=== PATIENT | male | born 1945 | race Caucasian/White ===

== ENCOUNTER 2022-03-12 06:10 | Day surgery (SDC) | payer OTHER ==
[2022-03-08 11:34] LABS: BASOPHILS % (AUTO) 0.7 % (0.0-5.0); HEMATOCRIT 45.9 % (42-54); LYMPHOCYTES % (AUTO) 19.5 % (21.0-51.0); MEAN CORPUSCULAR HEMOGLOBIN 29.7 pg (27.0-33.0); MEAN CORPUSCULAR HGB CONC 32.7 g/dL (32.0-36.0); MEAN CORPUSCULAR VOLUME 90.9 fL (79-99); MONOCYTES % (AUTO) 11.5 % (3.0-13.0); NEUTROPHILS % (AUTO) 67.9 % (40.0-77.0); PLATELET COUNT (AUTO) 243 K/uL (130-400); RED BLOOD CELL COUNT(AUTO) 5.05 MIL/uL (4.50-6.20); WHITE BLOOD COUNT (AUTO) 4.6 K/uL (4.8-10.8)
[2022-03-08 11:49] LABS: POTASSIUM 4.2 mmol/L (3.5-5.1)
[2022-03-08 12:17] LABS: INR 1.05 (0.85-1.15); PROTHROMBIN TIME 11.4 SEC (9.6-11.6)
[2022-03-08 12:19] LABS: PARTIAL THROMBOPLASTIN TIME 29.8 SEC (26.3-35.5)
[2022-03-09 08:39] VITALS: BP 132/62
[~2022-03-12] VITALS: Ht 172.7 cm; Wt 92.3 kg
[~2022-03-12 06:10] MED LIST: ALBUTEROL IH; APIX5TAB PO; ASCO500C18 PO; BYDUREON SQ; CANA300T PO; DULO60CA64 PO; GLIP5TAB11 PO; LIDOCAINE TP; LOSA100T58 PO; METF-446 PO; METO-391 PO; MORP-108 PO; MVIT PO; NICOTINE LOZENGE PO; PREG150C46 PO; PROP225T3 PO; ROSU10TA28 PO; SENN-107 PO; TESTOSTERONE TP; VIT1CAPS46 PO
[2022-03-12] MEDS ORDERED: 0.9%NACL 1000ML 1,000 ML IV ONE (07:25)
[2022-03-12 07:33] VITALS: BP 129/58
[2022-03-12] MEDS ORDERED: BUPIVACAINE/PF 0.25% 30ML VIAL IJ ONE (08:17)
[2022-03-12] MEDS ORDERED: LIDOCAINE HCL 1% 20 ML VIAL ONE (08:17)
[2022-03-12] MEDS ORDERED: BACITRACIN 1 EACH PACKET TP ONE (08:35)
[2022-03-12 09:05] VITALS: BP 126/63
[2022-03-12 09:20] VITALS: BP 135/66
== END 2022-03-12 10:06 | disposition home or self-care (01) ==
LOC: DAH 06:10
PROVIDERS: ATTEND Internal Medicine Cardiovascular Disease
DX: I47.1 Supraventricular tachycardia (principal); R55 Syncope and collapse; I48.92 Unspecified atrial flutter; E11.9 Type 2 diabetes mellitus without complications; I10 Essential (primary) hypertension; E78.5 Hyperlipidemia, unspecified; M19.90 Unspecified osteoarthritis, unspecified site; Z79.01 Long term (current) use of anticoagulants; Z79.899 Other long term (current) drug therapy; Z79.82 Long term (current) use of aspirin; Z98.890 Other specified postprocedural states; Z82.49 Family history of ischemic heart disease and other diseases of the circulatory system; Z82.3 Family history of stroke
CPT/HCPCS: 80048; 85025; 85610; 85730; 36415; 93005; 33285; A4649; C1764; J7030; J3490; A4215; A4222; A4221; A4663; A4216; A4606; A4223 ×3

== ENCOUNTER 2022-04-06 06:25 | Day surgery (SDC) | payer OTHER ==
[2022-04-05 10:41] VITALS: BP 104/52
[2022-04-05 10:59] LABS: BASOPHILS % (AUTO) 0.9 % (0.0-5.0); EOSINOPHILS % (AUTO) 0.9 % (0.0-8.0); HEMATOCRIT 49.3 % (42-54); LYMPHOCYTES % (AUTO) 20.4 % (21.0-51.0); MEAN CORPUSCULAR HEMOGLOBIN 29.9 pg (27.0-33.0); MEAN CORPUSCULAR HGB CONC 32.9 g/dL (32.0-36.0); NEUTROPHILS % (AUTO) 67.3 % (40.0-77.0); PLATELET COUNT (AUTO) 195 K/uL (130-400); RED BLOOD CELL COUNT(AUTO) 5.42 MIL/uL (4.50-6.20); RED CELL DISTRIBUTION WIDTH 13.1 % (11.0-15.5); WHITE BLOOD COUNT (AUTO) 4.2 K/uL (4.8-10.8)
[2022-04-05 11:09] LABS: INR 1.09 (0.85-1.15); PROTHROMBIN TIME 11.8 SEC (9.6-11.6)
[2022-04-05 11:10] LABS: PARTIAL THROMBOPLASTIN TIME 29.5 SEC (26.3-35.5)
[2022-04-05 11:12] LABS: CREATININE 1.1 mg/dL (0.5-1.5); POTASSIUM 4.5 mmol/L (3.5-5.1)
[~2022-04-06] VITALS: Ht 175.3 cm; Wt 91.1 kg
[2022-04-06] VITALS (11 sets, daily range): BP systolic 76–120; BP diastolic 39–64
[~2022-04-06 06:25] MED LIST changes: +ALBU18HF7 IH; -ALBUTEROL IH; -ASCO500C18 PO; -BYDUREON SQ; -LIDOCAINE TP; -LOSA100T58 PO; +LOSA50TA64 PO; -METO-391 PO; -MVIT PO; +Metoprolol Succinate PO; -NICOTINE LOZENGE PO; -PROP225T3 PO; +PROP325C5 PO; -SENN-107 PO; +TEST2.5G16 TD; -TESTOSTERONE TP; -VIT1CAPS46 PO
[2022-04-06] MEDS ORDERED: LIDOCAINE PF 100MG/5ML (2%) SYRINGE 5ML ONE (07:38)
[2022-04-06] MEDS ORDERED: PROPOFOL 10 MG/ML 20ML VIAL IV ONE (07:39)
[2022-04-06] MEDS ORDERED: 0.9%NACL 1000ML 1,000 ML IV SCH (08:00)
== END 2022-04-06 10:20 | disposition home or self-care (01) ==
LOC: DAH 06:25
PROVIDERS: ATTEND Internal Medicine Cardiovascular Disease
DX: I48.19 Other persistent atrial fibrillation (principal); J44.9 Chronic obstructive pulmonary disease, unspecified; I10 Essential (primary) hypertension; E78.5 Hyperlipidemia, unspecified; K21.9 Gastro-esophageal reflux disease without esophagitis; M19.90 Unspecified osteoarthritis, unspecified site; E11.9 Type 2 diabetes mellitus without complications; Z79.82 Long term (current) use of aspirin; Z87.891 Personal history of nicotine dependence; Z86.73 Personal history of transient ischemic attack (TIA), and cerebral infarction without residual deficits; Z79.01 Long term (current) use of anticoagulants; Z79.899 Other long term (current) drug therapy; Z98.890 Other specified postprocedural states; Z90.89 Acquired absence of other organs
CPT/HCPCS: 71045; 87426; 80048; 85025; 85610; 85730; 36415; 92960; 82948; 93005 ×2; J7030; J2001; J2704; A4215; A4222; A4221; A4663; A4216; A4606; A4223 ×3; 99156; 99157

== ENCOUNTER → 2023-12-18 | Outpatient (CLI) | payer OTHER ==
[~2023-12-18] MED LIST changes: -GLIP5TAB11 PO; +GLIP5TAB15 PO; -PREG150C46 PO; +PREG150C47 PO; +PROP325C17 PO; -PROP325C5 PO; -ROSU10TA28 PO; +ROSU10TA72 PO
== END | disposition home or self-care (01) ==
LOC: SHCH 13:49
PROVIDERS: ATTEND Internal Medicine Cardiovascular Disease
DX: I48.0 Paroxysmal atrial fibrillation (principal); I48.4 Atypical atrial flutter; R09.89 Other specified symptoms and signs involving the circulatory and respiratory systems
CPT/HCPCS: 93306; 93880

== ENCOUNTER → 2024-02-17 | Outpatient (CLI) | payer OTHER ==
[2024-02-17 11:48] LABS: CREATININE 0.9 mg/dL (0.5-1.3); POTASSIUM 4.4 mmol/L (3.5-5.1)
== END | disposition home or self-care (01) ==
LOC: LAB 11:12
PROVIDERS: ATTEND Internal Medicine Cardiovascular Disease
DX: I48.0 Paroxysmal atrial fibrillation (principal)
CPT/HCPCS: 36415; 80048

== ENCOUNTER → 2024-02-19 | Outpatient (CLI) | payer OTHER ==
[~2024-02-19] MED LIST changes: +IOHEXOL-350 75 ML VIAL IV ONE
== END | disposition home or self-care (01) ==
LOC: RAH 10:20
PROVIDERS: ATTEND Internal Medicine Cardiovascular Disease
DX: I70.0 Atherosclerosis of aorta (principal); I65.23 Occlusion and stenosis of bilateral carotid arteries
CPT/HCPCS: 70498; Q9967

== ENCOUNTER → 2024-02-22 | Outpatient (CLI) | payer OTHER ==
[~2024-02-22] MED LIST changes: -IOHEXOL-350 75 ML VIAL IV ONE
== END | disposition home or self-care (01) ==
LOC: SHCH 15:27
PROVIDERS: ATTEND Internal Medicine Cardiovascular Disease
DX: I73.9 Peripheral vascular disease, unspecified (principal)
CPT/HCPCS: 93925

== ENCOUNTER → 2024-02-26 | Outpatient (CLI) | payer OTHER | END | disposition home or self-care (01) | LOC: RAH 14:48 | PROVIDERS: ATTEND Internal Medicine Cardiovascular Disease | DX: Z13.6 Encounter for screening for cardiovascular disorders (principal) | CPT/HCPCS: 75571 ==

== ENCOUNTER → 2024-03-04 | Outpatient (CLI) | payer OTHER ==
[2024-03-04 12:30] LABS: CREATININE 0.9 mg/dL (0.5-1.3); POTASSIUM 4.3 mmol/L (3.5-5.1)
== END | disposition home or self-care (01) ==
LOC: LAB 10:58
PROVIDERS: ATTEND Internal Medicine Cardiovascular Disease
DX: I48.4 Atypical atrial flutter (principal)
CPT/HCPCS: 36415; 80048

== ENCOUNTER → 2024-03-10 | Outpatient (CLI) | payer OTHER ==
[~2024-03-10] MED LIST changes: +IOHEXOL-350 75 ML VIAL IV ONE
== END | disposition home or self-care (01) ==
LOC: RAH 10:46 → EDSTATUS 11:00
PROVIDERS: ATTEND Internal Medicine Cardiovascular Disease
DX: I70.203 Unspecified atherosclerosis of native arteries of extremities, bilateral legs (principal); I70.0 Atherosclerosis of aorta; Z96.643 Presence of artificial hip joint, bilateral
CPT/HCPCS: 75635; Q9967

== ENCOUNTER → 2024-05-05 | Outpatient (CLI) | payer OTHER ==
[~2024-05-05] MED LIST changes: -IOHEXOL-350 75 ML VIAL IV ONE
[2024-05-05] MEDS: REGADENOSON 0.4 MG/5 ML PF SYG IVP ONE (10:52)
== END | disposition home or self-care (01) ==
LOC: SHCH 08:02
PROVIDERS: ATTEND Internal Medicine Cardiovascular Disease
DX: I25.10 Atherosclerotic heart disease of native coronary artery without angina pectoris (principal); I48.0 Paroxysmal atrial fibrillation
CPT/HCPCS: 78452; 93017; J2785; A9500 ×2

== ENCOUNTER 2025-03-24 14:39 | Observation (INO) | payer OTHER ==
[~2025-03-24] VITALS: Ht 175.3 cm; Wt 85.6 kg
[~2025-03-24 14:39] MED LIST changes: -CANA300T PO; +FARXIGA PO; -Metoprolol Succinate PO; +NICO-578 PO; +[UNRECOGNIZED DRUG - OTHER] SQ
[2025-03-24 15:15] LABS: IMMATURE GRANULOCYTE ABSOLUTE 0.01 K/uL (0-1); NUCLEATED RED BLOOD CELLS 0.0 % (0.0-0.19); PLATELET COUNT (AUTO) 186 K/uL (130-400); RED BLOOD CELL COUNT(AUTO) 5.89 MIL/uL (4.50-6.20); RED CELL DISTRIBUTION WIDTH 13.4 % (11.0-15.5); WHITE BLOOD COUNT (AUTO) 7.3 K/uL (4.8-10.8)
[2025-03-24 15:21] LABS: CREATININE 1.0 mg/dL (0.5-1.3); GLOMERULAR FILTR. RATE CALC 77.0 mL/min (>90); GLUCOSE,RANDOM 149.0 mg/dL (70-105); SODIUM SERUM 137.0 mmol/L (136-145); UREA NITROGEN, BLOOD 17.0 mg/dL (7-18)
[2025-03-24 15:31] LABS: CREATINE KINASE, TOTAL 68.0 U/L (21-232)
--- NOTE | 2025-03-24 15:36 | ERN ---
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 PATIENT DOES HAS A HISTORY OF AFIB BUT CONCERNS WERE THAT THE BLOOD PRESSURE OF THE PATIENT WAS IN THE 80S SYSTOLIC. PATIENT WAS ALSO PRESENTED WITH NEAR-SYNCOPE EPISODE. Allergies: Coded Allergies: atorvastatin (Unverified Allergy, Unknown, 03/09/22) hydrocodone (Unverified Allergy, Unknown, 04/06/22) Home Meds Reported Medications [byduran] No Conflict Check, 2 MG SQ QWEEK 06/05/24 [Farxiga] No Conflict Check, 10 MG PO AM 06/03/24 Nicotine Polacrilex (Nicotine Lozenge) 4 Mg Lozenge, 1 EACH PO AD for 10 Days, #25 EACH 0 Refills 06/03/24 Albuterol Sulfate (Ventolin Hfa) 18 Gm Hfa.aer.ad, 1 PUFF IH Q4HPRN PRN for SHORTNESS OF BREATH/WHEEZING, INHALER 04/05/22 Testosterone (Testosterone) 2.5 Gm Gel.packet, 2 PACK TD DAILY 04/05/22 Losartan Potassium (Losartan Potassium) 50 Mg Tablet, 100 MG PO HS, TAB 04/05/22 Propafenone HCl (Propafenone HCl) 325 Mg Cap.er.12h, 325 MG PO BID, CAPSULE.DR 04/05/22 Morphine Sulfate (Morphine Sulfate 15 mg Tab.sa) 15 Mg Tablet.er, 15 MG PO Q4HPRN PRN for PAIN, TAB 03/09/22 Glipizide (Glipizide) 5 Mg Tablet, 5 MG PO HS, TAB 03/09/22 Rosuvastatin Calcium (Rosuvastatin Calcium) 10 Mg Tablet, 10 MG PO HS, TAB 03/09/22 Duloxetine HCl (Duloxetine HCl) 60 Mg Capsule.dr, 60 MG PO HS, CAP 03/09/22 Metformin HCl (Metformin HCl) 1,000 Mg Tablet, 1000 MG PO BID, TAB 03/09/22 Pregabalin (Pregabalin) 150 Mg Capsule, 150 MG PO BID, CAP 03/09/22 Apixaban (Eliquis) 5 Mg Tablet, 5 MG PO BID, TAB 03/09/22 Past Medical History Past Medical History: A-Fib, Diabetes-Type II, High Cholesterol, Hypertension Past Surgical History: Tonsillectomy, Other Surgical History Other: BILATERAL HIP, BILATERAL SHOULDERS REPLACEMENT ROS Dictation CONSTITUTIONAL: NO CHILLS, NO FEVER, NO WEAKNESS, DIAPHORESIS, MALAISE. HEAD/FACE: NO SIGNS OF TRAUMA. EENT: NO EYE PAIN, NO BLURRED VISION, NO TEARING, NO DOUBLE VISION, NO EAR PAIN, NO EAR DISCHARGE, NO NOSE PAIN, NO NASAL CONGESTION, NO THROAT PAIN, NO THROAT SWELLING, NO MOUTH PAIN. RESPIRATORY: NO COUGH, NO ORTHOPNEA, NO SOB, NO STRIDOR, NO WHEEZING. CARDIOVASCULAR: NO CHEST PAIN, NO EDEMA, PALPITATIONS, NEAR SYNCOPE. GASTROINTESTINAL/ABDOMINAL: NO ABDOMINAL PAIN, NO CONSTIPATION, NO DIARRHEA, NO NAUSEA, NO VOMITING. GENITOURINARY: NO ABNORMAL DISCHARGE, NO DYSURIA, NO FREQUENT URINATION, NO HEMATURIA. NO COMPLAINTS OF PAIN IN THE GENITALS. MUSCULOSKELETAL: NO BACK PAIN, NO GOUT, NO JOINT PAIN, NO JOINT SWELLING, NO MUSCLE PAIN, NO MUSCLE STIFFNESS, NO NECK PAIN. INTEGUMENTARY: NO CHANGE IN COLOR, NO CHANGE IN HAIR/NAILS, NO DRYNESS, NO LESION, NO LUMPS, NO RASH. NEUROLOGICAL/PSYCH: NO ANXIETY, NOT DEPRESSED, NO EMOTIONAL PROBLEM, NO HEADACHE, NO NUMBNESS, NO PRE-EXISTING DEFICIT, NO HISTORY OF SEIZURES, NO TREMORS, NO WEAKNESS. HEMATOLOGIC/LYMPHATIC: NOT ANEMIC, NO HISTORY OF BLOOD CLOTS, NO APPARENT BLEEDING, NO BRUISING, GLANDS NOT SWOLLEN. ALL SYSTEMS NEGATIVE, EXCEPT NOTED. Physical Exam Physical Exam Dictation VITAL SIGNS: REVIEWED. GENERAL APPEARANCE: ALERT, ORIENTED X3, NO ACUTE DISTRESS, OBESE. HEAD AND FACE: NON-TRAUMATIC. EYES: PERRL, PINK CONJUNCTIVAS, EYELID NO TRAUMA, ANTERIOR CHAMBER CLEAR. EARS: PINNAS INTACT AND NO SIGNS OF TRAUMA OR ERYTHEMA. EAR CANALS CLEAR AND NO DISCHARGE. TMS NO ERYTHEMA. NOSE: NO DISCHARGE, NO BLEEDING. OROPHARYNX: MOUTH NORMAL, TEETH NO CARIES, TONGUE PINK. PHARYNX CLEAR, NO ERYTHEMA. TONSILS NO EXUDATES, NO ABSCESSES NOTED. MUCOUS MEMBRANE MOIST. NECK: SUPPLE, NON-TENDER, NO THYROMEGALY, NO MASSES, NO JVD, NO BRUITS. BREAST: DEFERRED. CHEST: NO TENDERNESS, NO CREPITUS, NO PARADOXICAL MOVEMENT, NO RETRACTIONS. LUNGS: CLEAR, WELL-VENTILATED, SYMMETRIC, NO RALES, NO WHEEZING, NO RHONCHI, NO STRIDOR, GOOD BREATH SOUNDS BILATERALLY. HEART: REGULAR RATE, REGULAR RHYTHM, NO MURMUR, NO GALLOPS. VASCULAR: NO PERIPHERAL EDEMA. ABDOMEN: SOFT, POSITIVE BOWEL SOUNDS, NONDISTENDED, NO GUARDING, NONTENDER, NO REBOUND, NO MASSES NO HEPATOMEGALY, NO SPLENOMEGALY, NO RODAS'S SIGN, NO HERNIAS. RECTAL: DEFERRED. GENITAL: DEFERRED. NEUROLOGICAL: NORMAL SPEECH, GROSS MOTOR FUNCTION INTACT, GROSS SENSORY FUNCTION INTACT. MUSCULOSKELETAL: NECK NONTENDER, FULL RANGE OF MOTION, BACK NONTENDER, FULL RANGE OF MOTION. EXTREMITIES: NONTENDER, FULL RANGE OF MOTION. SKIN: COLOR PINK, DRY, NO TURGOR, NO RASH, NO LACERATIONS, NO ABRASIONS, NO CONTUSIONS. LYMPHATICS: DEFERRED. Results Laboratory and Microbiology Lab and Micro Result Laboratory Tests Test 03/24/25 15:05 White Blood Count 7.3 K/uL (4.8-10.8) Red Blood Count 5.89 MIL/uL (4.50-6.20) Hemoglobin 17.7 g/dL (14.0-18.0) Hematocrit 52.9 % (42-54) Mean Corpuscular Volume 89.8 fL (79-99) Mean Corpuscular Hemoglobin 30.1 pg (27.0-33.0) Mean Corpuscular Hemoglobin Concent 33.5 g/dL (32.0-36.0) Red Cell Distribution Width 13.4 % (11.0-15.5) Platelet Count 186 K/uL (130-400) Mean Platelet Volume 10.0 fL (7.5-10.5) Immature Granulocyte % (Auto) 0.1 % (0-1) Neutrophils (%) (Auto) 65.6 % (40.0-77.0) Lymphocytes (%) (Auto) 18.1 % (21.0-51.0) L Monocytes (%) (Auto) 9.4 % (3.0-13.0) Eosinophils (%) (Auto) 6.1 % (0.0-8.0) Basophils (%) (Auto) 0.7 % (0.0-5.0) Neutrophils # (Auto) 4.8 K/uL (1.8-7.7) Lymphocytes # (Auto) 1.3 K/uL (1.0-4.8) Monocytes # (Auto) 0.7 K/uL (0.1-1.0) Eosinophils # (Auto) 0.45 K/uL (0.00-0.70) Basophils # (Auto) 0.05 K/uL (0.00-0.20) Absolute Immature Granulocyte (auto 0.01 K/uL (0-1) Nucleated Red Blood Cells 0.0 % (0.0-0.19) Sodium Level 137 mmol/L (136-145) Potassium Level 4.3 mmol/L (3.5-5.1) Chloride Level 100 mmol/L (101-111) L Carbon Dioxide Level 33 mmol/L (21-32) H Blood Urea Nitrogen 17 mg/dL (7-18) Creatinine 1.0 mg/dL (0.5-1.3) Glomerular Filtration Rate Calc 77 mL/min (>90) Random Glucose 149 mg/dL (70-105) H Total Calcium 8.9 mg/dL (8.5-10.1) Magnesium Level 2.00 mg/dL (1.80-2.40) Total Creatine Kinase 68 U/L (21-232) Troponin I High Sensitivity 74 ng/L (4-75) Labs Reviewed?: Yes EKG/XRAY/US/CT/MRI EKG Comment 03/24/2025 TIME 2:44 P.M. VENTRICULAR RATE 139 SINUS ATOPIC ATRIAL TACHYCARDIA CA [address] WAVE ELEVATION OR DEPRESSION REPEAT EKG 03/24/2025 TIME 3:45 P.M. VENTRICULAR RATE [address] WAVE ELEVATION OR DEPRESSION MDM MDM: DIFFERENTIAL DIAGNOSIS: HYPOTENSIVE EPISODE, ATRIAL FIBRILLATION, NEAR-SYNCOPE, RATIONALE: TESTS CONSIDERED AND ORDERED SECONDARY TO SHARED DECISION MAKING INCLUDE: LABS, ECG AND RADIOLOGY PREVIOUS OUTSIDE RECORDS REVIEWED: OLD ER VISITS. RISK OF COMPLICATION AND/OR MORBIDITY OR MORTALITY OF PATIENT MANAGEMENT: NONE MEDICATIONS-PER MEDICATION RECONCILIATION NEED FOR HOSPITALIZATION: PATIENT DOES MEET CRITERIA FOR HOSPITALIZATION. NEED FOR EMERGENCY MAJOR/MINOR SURGERY: NO THERE ARE NO SOCIAL CONCERNS WITH THIS PATIENT. PRESCRIPTION DRUG MANAGEMENT PRESCRIPTIONS WILL INCLUDE SYMPTOMATIC CARE PATIENT'S PRIOR EXTERNAL MEDICAL RECORDS FROM OTHER ER VISITS WERE REVIEWED BY ME INDICATED. PRIOR TESTING AND RESULTS FROM PREVIOUS VISITS WERE REVIEWED. PRIOR TESTS WERE TAKEN INTO ACCOUNT WITH MEDICAL DECISION MAKING AND RESOURCE UTILIZATION, INDEPENDENT HISTORIAN/HISTORIANS WERE USED TO OBTAIN COMPLETE MEDICAL HISTORY. I INDEPENDENTLY INTERPRETED THE TEST THAT WERE PERFORMED, RESULTS WERE REVIEWED BY ME AND CONSIDERED FINDINGS ON RADIOLOGY IF ORDERED. MEDICAL MANAGEMENT AND EXAMINATION INTERPRETATION DISCUSSIONS WERE HAD BY ME WITH OTHER QUALIFIED HEALTHCARE PROFESSIONALS INDICATED FOR THE PATIENT'S CARE. PATIENT WILL BE ADMITTED UNDER THE CARE OF [facility] FOR ONGOING MANAGEMENT ED Course Orders Procedure Category Date Status Time Cbc With Differential LAB 03/24/25 Complete 14:47 Chest 1vw RAD 03/24/25 Taken 14:47 12 Lead Ekg Tracing- EKG 03/24/25 Logged Technical 14:47 Magnesium LAB 03/24/25 Complete 14:47 Creatine Kinase, Total LAB 03/24/25 Complete 14:47 Troponin I High LAB 03/24/25 Complete Sensitivity 14:47 Urinalysis Profile LAB 03/24/25 Logged 14:47 Basic Metabolic Panel LAB 03/24/25 Complete 14:47 Metoprolol Tartrate PHA 03/24/25 Complete (Lopressor) 15:30 12 Lead Ekg Tracing- EKG 03/24/25 Logged Technical 15:45 Current Medications Medications (Trade) Dose Ordered Sig/Nate Route PRN Reason Start Time Stop Time Status Last Admin Dose Admin Metoprolol Tartrate (loprESSOR) 5 mg ONCE ONCE IV 03/24/25 15:30 03/24/25 15:31 DC 03/24/25 15:13 Vital Signs Date Time Temp Pulse Resp B/P (MAP) Pulse Ox O2 Delivery O2 Flow Rate FiO2 03/24/25 15:31 98.1 105 19 120/71 99 Room Air* 0 21 03/24/25 15:13 142 126/79 03/24/25 14:58 138 18 135/83 99 Room Air* 0 03/24/25 14:40 97.5 141 16 114/79 98 Nasal Cannula 3.0 DX & DISP Disposition: Inpatient Decision to Admit Time: 15:59 Departure Impression: Primary Impression: Near syncope Additional Impressions: Atrial flutter, Hypotensive episode Condition: Stable Referrals: MAX HUGO MD (PCP) DAVE KIRKPATRICK MD Mar 24, 2025 15:36
--- NOTE | 2025-03-24 16:04 | HMCIMG ---
EXAM: CR Chest, 2 View. CLINICAL HISTORY: CP COMPARISON: 06/03/2024. FINDINGS: LUNGS: The lungs show no infiltrate or other acute finding. PLEURAL SPACES: No pleural effusion or pneumothorax. MEDIASTINUM: The cardiomediastinal silhouette is within normal limits. BONES: No aggressive appearing osseous lesion seen. Bilateral shoulder arthroplasty. IMPRESSION: No acute cardiopulmonary pathology is evident. /[place]
[2025-03-24 16:49] LABS: CREATINE KINASE, TOTAL 63.0 U/L (21-232)
--- NOTE | 2025-03-24 17:16 | HMCIMG ---
EXAM: US Duplex Bilateral Carotid and Vertebral Arteries. CLINICAL HISTORY: syncope TECHNIQUE: Real-time ultrasound scan of the bilateral carotid and vertebral arteries, 2-D saini scale, with color Doppler flow and spectral waveform analysis. COMPARISON: None provided. FINDINGS: RIGHT COMMON CAROTID ARTERY: No occlusion or significant stenosis. RIGHT INTERNAL CAROTID ARTERY: No occlusion or significant stenosis. RIGHT EXTERNAL CAROTID ARTERY: No occlusion or significant stenosis. RIGHT VERTEBRAL ARTERY: Antegrade flow. RIGHT ICA/CCA RATIO: Within normal limits. LEFT COMMON CAROTID ARTERY: Elevated velocities suggesting mild origin stenosis. LEFT INTERNAL CAROTID ARTERY: No occlusion or significant stenosis. LEFT EXTERNAL CAROTID ARTERY: No occlusion or significant stenosis. LEFT VERTEBRAL ARTERY: Antegrade flow. LEFT ICA/CCA RATIO: Within normal limits. SOFT TISSUES: No incidental abnormalities. IMPRESSION: Cardiac arrhythmia. Moderate hemodynamically insignificant atherosclerotic plaque No hemodynamically significant stenosis by NASCET criteria. /[place]
[2025-03-24 17:25] LABS: ABG BASE EXCESS -0.1 mmol/L (-2.0-3.0); ABG HCO3 25.5 mmol/L (21.0-28.0); ABG OXYGEN SATURATION 97.1 % (94.0-98.0); ABG PCO2 45 mmHg (35-48); ABG PH 7.373 (7.350-7.450); CARBON MONOXIDE 0.2 % (0.5-1.5); DEVICE COMMENT LBJOCELYN; PO2, ARTERIAL BG 97.4 mmHg (83.0-108.0); TEMPERATURE, CELSIUS BG 37.0 CELSIUS (35.5-37.0); VENT MODE, BG NC (ROOM AIR)
--- NOTE | 2025-03-24 17:42 | NUR ---
FLYNN MARAVILLA MADE AWARE OF CRITICAL ABG LACTIC AND HGB LEVEL. NO NEW ORDERS GIVEN AT THIS TIME./NAUN
[2025-03-24 17:47] LABS: APPEARANCE,URINE CLEAR (CLEAR); GLUCOSE, URINE (UA) >=1000 mg/dL (NEGATIVE); LEUKOCYTE ESTERASE ,URINE NEGATIVE Leu/uL (NEGATIVE); NITRATE,URINE NEGATIVE (NEGATIVE); OCCULT BLOOD,URINE NEGATIVE (NEGATIVE)
[2025-03-24 17:48] LABS: ADD UA MICROSCOPIC YES
[2025-03-24 17:51] LABS: SQUAMOUS EPITHELIAL CELL,UR RARE /HPF (0-2)
--- NOTE | 2025-03-24 20:13 | NUR ---
PENDING HOME MEDICATIONS LIST
[2025-03-24] MEDS: FAMOTIDINE 20MG TAB PO SCH (20:32)
--- NOTE | 2025-03-24 20:35 | NUR ---
FRANCY BIN PACKER AT BEDSIDE AT THIS TIME
[2025-03-24] MEDS ORDERED: NITROGLYCERIN 0.4 MG SL TAB SL PRN ×2 (21:30→22:00)
--- NOTE | 2025-03-24 21:52 | HP ---
[facility] HISTORY & PHYSICAL Date Patient Seen: Mar 24, 2025 Time of Visit: 21:43 Supervising Physician: DR. ERNESTO MOSHER Primary Care Physician: OANH ALVA Outpatient Specialists: [ ] Inpatient Consults: CARDIOLOGY PROBLEM LIST: 1. AFIB WITH RVR 2. UNSTABLE ANGINA 3. DIABETES TYPE 2 UNCONTROLLED 4. NEAR-SYNCOPE CHIEF COMPLAINT: GENERALIZED BODY WEAKNESS, CHEST PAIN, NEAR-SYNCOPE. 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 Patient reports that earlier today, he was seen by his primary care physician Dr. Dre Alfaro, and was found to be hypotensive and tachycardic. Patient was referred to Dr. FINE patient's mining technician. Upon 12 lead EKGs, patient was found to be in AFib with RVR and was referred to the emergency department for further evaluation and treatment. Patient also reports chest pain. Patient denies fever, chills, nausea, vomiting, diarrhea, cough, dizziness, or any other symptoms. Ultrasound Doppler of the bilateral chloride is shows no significant atherosclerotic plaque. In the emergency department, patient received metoprolol 5 mg IV,. For the time of the assessment, patient is still on AFib with RVR and was started on Cardizem drip with cardiology consult. Patient will be admitted to PCCU for close monitoring. PAST MEDICAL HX: see above PAST SURGICAL HX: noncontributory SOCIAL HISTORY: No tobacco, ETOH, or illicit drug use Coded Allergies: atorvastatin (Unverified Allergy, Unknown, 03/09/22) hydrocodone (Unverified Allergy, Unknown, 04/06/22) REVIEW OF SYSTEMS: 12 point ROS reviewed with patient. Pertinent positives mentioned above. Otherwise negative. PHYSICAL EXAM: GENERAL: alert, weak, awake oriented x 3 HEENT: EOMI, Sclera non icteric, moist mucosa NECK: Supple, no JVD, trachea midline LUNGS: Clear breath sounds bilaterally. No wheezes HEART: Regular rate and rhythm. Normal S1 and S2, without murmurs ABD: Abdomen soft, nontender. Bowel sounds present EXT: No clubbing cyanosis or edema NEURO: Alert and oriented to person, follows commands Vital Signs (last 8hr) Date Time Temp Pulse Resp B/P (MAP) Pulse Ox O2 Delivery O2 Flow Rate FiO2 03/24/25 21:39 98.2 123 20 128/81 97 Nasal Cannula* 2 03/24/25 21:39 123 128/81 03/24/25 20:44 139 16 136/82 97 Nasal Cannula* 2 03/24/25 19:59 136 18 120/69 96 Nasal Cannula* 1 03/24/25 19:33 97.9 114 14 113/68 96 Nasal Cannula* 1 03/24/25 17:09 110 16 101/83 99 Room Air* 0 03/24/25 15:31 98.1 105 19 120/71 99 Room Air* 0 03/24/25 15:13 142 126/79 03/24/25 14:58 138 18 135/83 99 Room Air* 0 03/24/25 14:40 97.5 141 16 114/79 98 Nasal Cannula 3.0 LABS: Hematology Labs: Test 03/24/25 15:05 Range/Units White Blood Count 7.3 4.8-10.8 K/uL Red Blood Count 5.89 4.50-6.20 MIL/uL Hemoglobin 17.7 14.0-18.0 g/dL Hematocrit 52.9 42-54 % Mean Corpuscular Volume 89.8 79-99 fL Mean Corpuscular Hemoglobin 30.1 27.0-33.0 pg Mean Corpuscular Hemoglobin Concent 33.5 32.0-36.0 g/dL Red Cell Distribution Width 13.4 11.0-15.5 % Platelet Count 186 130-400 K/uL Mean Platelet Volume 10.0 7.5-10.5 fL Immature Granulocyte % (Auto) 0.1 0-1 % Neutrophils (%) (Auto) 65.6 40.0-77.0 % Lymphocytes (%) (Auto) 18.1 L 21.0-51.0 % Monocytes (%) (Auto) 9.4 3.0-13.0 % Eosinophils (%) (Auto) 6.1 0.0-8.0 % Basophils (%) (Auto) 0.7 0.0-5.0 % Neutrophils # (Auto) 4.8 1.8-7.7 K/uL Lymphocytes # (Auto) 1.3 1.0-4.8 K/uL Monocytes # (Auto) 0.7 0.1-1.0 K/uL Eosinophils # (Auto) 0.45 0.00-0.70 K/uL Basophils # (Auto) 0.05 0.00-0.20 K/uL Absolute Immature Granulocyte (auto 0.01 0-1 K/uL Nucleated Red Blood Cells 0.0 0.0-0.19 % Chemistry Labs: Test 03/24/25 16:25 03/24/25 15:05 Range/Units Total Creatine Kinase 63 21-232 U/L Troponin I High Sensitivity 73.7 4-75 ng/L Sodium Level 137 136-145 mmol/L Potassium Level 4.3 3.5-5.1 mmol/L Chloride Level 100 L 101-111 mmol/L Carbon Dioxide Level 33 H 21-32 mmol/L Blood Urea Nitrogen 17 7-18 mg/dL Creatinine 1.0 0.5-1.3 mg/dL Glomerular Filtration Rate Calc 77 >90 mL/min Random Glucose 149 H 70-105 mg/dL Total Calcium 8.9 8.5-10.1 mg/dL Magnesium Level 2.00 1.80-2.40 mg/dL DIAGNOSTICS / RADIOLOGY RESULTS: [ ] PLAN NEURO: Minimize central acting medications as possible. Maintain fall precautions, adequate lighting during the day Neurochecks every [address] head without contrast PULMONARY: Supplemental 02 as needed. Maintain aspiration precautions at all times CARDIOVASCULAR: Follow hemodynamics. Vital signs per facility protocol Cardiology consult Aspirin 81 mg p.o. daily Atorvastatin 40 mg p.o. at bedtime 2D echo cardiology read Serial troponin level Paola stover GI & NUTRITION: Continue with nutritional support. Continue stool softeners and laxatives as needed. KIDNEYS & ELECTROLYTES: Strict monitoring of intake, output and overall fluid balance. Avoid nephrotoxic medications to the extent possible. Medications to be dosed according to renal function. Monitor electrolytes and replace as needed ENDOCRINE: Maintain blood glucose between 100-180 at all times. Hypoglycemia protocol in place Accu-Cheks a.c. HS Insulin coverage per sliding scale Obtain hemoglobin A1c INFECTIOUS DISEASE: Trend temperature, WBC and procalcitonin level Follow cultures, deescalate antibiotics as soon as possible. Panculture if new onset fever ONCOLOGY/HEMATOLOGY/COAGULATION: Monitor for s/s of bleeding Monitor hemoglobin, coagulation studies as needed SKIN: Pressure ulcer prevention per facility protocol Specialty mattress ORTHO/REHAB: Continue PT/OT Prophylaxis: Continue GI and DVT prophylaxis Code Status: Full Resuscitation Disposition: TBD Other: Total patient care time exceeds 35 minutes excluding all procedures. Case discussed with Dr. Ernesto Mosher, and the above plan was formulated. FLYNN SEN Mar 24, 2025 21:52
[2025-03-24] MEDS ORDERED: GLUCAGON 1MG KIT 1 MG ML IM PRN (22:00)
[2025-03-24] MEDS ORDERED: guaiFENesin-DM 200/20MG 10ML PO PRN (22:00)
[2025-03-24] MEDS ORDERED: DEXTROSE 50%-WATER 50 ML DISP.SYRIN IV PRN (22:00)
[2025-03-24] MEDS ORDERED: MAG/ALUM/SIMETH 30 ML UDCUP PO PRN (22:00)
[2025-03-24] MEDS ORDERED: LACTULOSE 20 GM/30 ML UDCUP PO PRN (22:00)
[2025-03-24 22:07] LABS: CREATINE KINASE, TOTAL 57.0 U/L (21-232)
[2025-03-24 22:29] LABS: AMPHET/METH SCREEN,URINE NEGATIVE (NEGATIVE); BARBITURATE SCREEN, URINE NEGATIVE (NEGATIVE); CANNABINOID SCREEN,URINE NEGATIVE (NEGATIVE); COCAINE SCREEN,URINE NEGATIVE (NEGATIVE)
--- NOTE | 2025-03-24 22:32 | NUR ---
REPORT GIVEN TO FELICE RN
[2025-03-24 23:00] VITALS: BP 123/57; PULSE 62; RESP 18; TEMP 97.7
--- NOTE | 2025-03-24 23:56 | HMCIMG ---
EXAM: Non-contrast CT examination of the Brain. CLINICAL HISTORY: Near syncope. TECHNIQUE: Thin collimated axial CT images of the brain were obtained, with sagittal and coronal reformatted images also submitted. CT scan done according to ALARA (As Low as Reasonably Achievable). CONTRAST USED: None. COMPARISON: None provided. FINDINGS: No acute intracranial abnormality is present. No acute cortical infarction, hemorrhage, mass, or mass effect. Mild generalized brain atrophy and chronic microvascular ischemic white matter disease. 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 No hydrocephalus or abnormal extra-axial fluid collections. The posterior fossa is unremarkable. The skull base and calvarium are intact. The included portions of the paranasal sinuses and mastoid air cells are clear. IMPRESSION: No acute intracranial abnormality is present. Mild generalized brain atrophy and chronic microvascular ischemic white matter disease. 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 If the clinical concern persists, recommend an MRI of the brain, including DWI, for further evaluation. /[place]
[2025-03-25] VITALS: O2SAT 95
[2025-03-25 03:25] VITALS: BP 108/56; PULSE 63; RESP 20; TEMP 97
[2025-03-25 04:53] LABS: IMMATURE GRANULOCYTE ABSOLUTE 0.02 K/uL (0-1); NUCLEATED RED BLOOD CELLS 0.0 % (0.0-0.19); PLATELET COUNT (AUTO) 172 K/uL (130-400); RED BLOOD CELL COUNT(AUTO) 5.57 MIL/uL (4.50-6.20); RED CELL DISTRIBUTION WIDTH 13.3 % (11.0-15.5); WHITE BLOOD COUNT (AUTO) 6.5 K/uL (4.8-10.8)
[2025-03-25 05:20] LABS: CREATINE KINASE, TOTAL 55.0 U/L (21-232); CREATININE 0.9 mg/dL (0.5-1.3); GLOMERULAR FILTR. RATE CALC 87.0 mL/min (>90); GLUCOSE,RANDOM 115.0 mg/dL (70-105); PHOSPHORUS 4.9 mg/dL (2.5-4.9); SODIUM SERUM 140.0 mmol/L (136-145); UREA NITROGEN, BLOOD 18.0 mg/dL (7-18)
--- NOTE | 2025-03-25 06:34 | EKG ---
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
--- NOTE | 2025-03-25 06:34 | EKG ---
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
--- NOTE | 2025-03-25 06:34 | EKG ---
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
[2025-03-25 08:00] VITALS: BP 112/52; PULSE 60; RESP 16; TEMP 98.1; O2SAT 97
[2025-03-25] MEDS: FAMOTIDINE 20MG TAB PO SCH (09:00)
--- NOTE | 2025-03-25 09:54 | NUR ---
DCP: HOME sw met with pt who lives at home with his Eva [phone]. Pt sates he can "still take care of himself and do everything he is supposed to do." Pt can complete his ADLS, uses a cane when ambulating long distances. Denies need for provider, HH or HD at this time. PCP is Dre Alfaro and uses [facility] for rx needs. Discussed dcp, pt wants to return home and denies dc needs. Addendum: 03/25/25 at 0958 by JYOTI TOSCANO Amended: Links added.
[2025-03-25] MEDS: ASPIRIN 81 MG EC TAB PO SCH (10:22)
[2025-03-25] MEDS: ENOXAPARIN SODIUM 40 MG/0.4 ML SYRINGE SQ SCH (10:23)
[2025-03-25] MEDS ORDERED: UBID200C18 PO (10:39)
[2025-03-25] MEDS ORDERED: TIRZ7.5P SQ (10:39)
[2025-03-25] MEDS ORDERED: IPRAHFA IH (10:39)
[2025-03-25] MEDS ORDERED: DRON400T7 PO (10:39)
--- NOTE | 2025-03-25 11:15 | HMCSR ---
APPROVED REPORT EXAM: Two-dimensional and M-mode echocardiogram with Doppler and color Doppler. INDICATION ICD: Assess valvulopathy 2D Dimensions RVDd3.6 cmLVEF(%)27.9 (>50%)LVED Vol(simp.)104.0 mL IVSd1.0 (0.7-1.1cm)FS(%)13 %LVES Vol(simp.)59.0 mL LVDd5.1 (3.8-5.6cm)LA (2D)4.6 (1.6-4.0cm)LVEF(%, simp.)44 % PWd1.0 (0.7-1.1cm)Ao Root(2D)3.4 (2.0-3.7cm)LA ESV INDEX (BP)28.02 mL/m2 IVSs1.3 cmLVOT diam2.3 (1.8-2.4cm) LVDs4.5 (2.5-4.0cm)IVC diam1.8 cm PWs1.4 cm Deformation Strain Apical 4-12.0 % Apical 2-8.4 % Apical 3-9.4 % Global Strain-9.9 % M-Mode Dimensions EPSS0.8 cm LA (MM)4.6 (1.6-4.0cm) Ao Root(MM)3.0 (2.0-3.7cm) Aortic Valve AoV Vmax1.1 m/Marlee Peak GR5.2 mmHgLVOT Vmax0.6 m/s AoV VTI0.2 mAo Mean GR3.2 mmHgLVOT VTI0.11 m DIO (VMAX)2.05 cm2AVA (VTI) 2.1 cm2 Mitral Valve MV E Vmax85.1 cm/sDECEL Snrm074 ms MV A Vmax21.0 cm/sP 1/2 T67 ms E/A ratio4.1MVA (PHT)3.3 cm2 TDI E/E' Medial9.4E/E' Lateral8.4 Medial E' Peak V9.04 cm/sLateral E' Peak V10.09 cm/s Pulmonary Valve PV Vmax0.7 m/sPV VTI0.12 mPV Mean GR1.0 mmHg PV Peak GR1.8 mmHg Left Ventricle The left ventricle is normal size. Reduced GLS -10.0% There is normal left ventricular wall thickness . LVEF is 40-45%. The LV diastolic function was unable to be assessed due to atrial arrhythmia. Right Ventricle The right ventricle is normal size. The right ventricular systolic function is normal. Atria The left atrium size is normal. The right atrium size is normal. Aortic Valve Aortic valve is trileaflet, mildly thickened and opens well. No aortic regurgitation is present. No a ortic valvular vegetation noted. There is no aortic valvular stenosis. Mitral Valve The mitral valve is normal in structure. There is trace of mitral valve regurgitation noted. There ar e no mitral valve vegetation noted. There is no mitral valve stenosis. Tricuspid Valve The tricuspid valve is normal in structure. There is trivial tricuspid valve regurgitation noted. The re is no tricuspid valve vegetation. Pulmonic Valve The pulmonary valve is normal in structure. There is no pulmonic valvular regurgitation. Great Vessels The aortic root is normal in size. The IVC is normal in size and collapses >50% with inspiration. Pericardium There is no pericardial effusion. Other Information Quality : Adequate Conclusion LVEF is 40-45%. Reduced GLS -10.0%
[2025-03-25] MEDS ORDERED: NICOTINE POLACRILEX PO SCH (11:30)
[2025-03-25 12:00] VITALS: BP 101/65; PULSE 67; RESP 16; TEMP 98.3
[2025-03-25] MEDS: IPRATROPIUM BROMIDE IH SCH (13:00)
--- NOTE | 2025-03-25 13:29 | PN ---
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 He was then referred to the [facility] for further evaluation. He endorsed an elevated heart rate, chest discomfort, diaphoresis, lightheadedness and hypotension with SBPs in the 80's. The patient admitted he missed his AM doses of home medication on Tu and Sat. Physical Examination: GENERAL: [No acute distress.] HEAD: [Normal with no signs of head trauma.] EYES: [PERRLA, EOMI, conjunctiva and sclera normal.] NECK: [Supple without JVD. There is no tenderness, lymphadenopathy, or masses. No thyromegaly. Normal carotid upstrokes without bruits.] LUNGS: [Clear breath sounds bilaterally. No wheezes, or rhonchi.] HEART: [Normal rate and rhythm. Normal S1 and S2 without murmurs, gallop or rub.] VASC: [Peripheral pulses +2 bilaterally.] EXT: [No clubbing, cyanosis or edema.] NEURO: [Awake, alert, and oriented x3. No focal neurological deficits noted.] Laboratory: Hematology Labs: Test 03/25/25 04:17 Range/Units White Blood Count 6.5 4.8-10.8 K/uL Red Blood Count 5.57 4.50-6.20 MIL/uL Hemoglobin 16.7 14.0-18.0 g/dL Hematocrit 50.2 42-54 % Mean Corpuscular Volume 90.1 79-99 fL Mean Corpuscular Hemoglobin 30.0 27.0-33.0 pg Mean Corpuscular Hemoglobin Concent 33.3 32.0-36.0 g/dL Red Cell Distribution Width 13.3 11.0-15.5 % Platelet Count 172 130-400 K/uL Mean Platelet Volume 9.9 7.5-10.5 fL Immature Granulocyte % (Auto) 0.3 0-1 % Neutrophils (%) (Auto) 56.9 40.0-77.0 % Lymphocytes (%) (Auto) 23.7 21.0-51.0 % Monocytes (%) (Auto) 9.9 3.0-13.0 % Eosinophils (%) (Auto) 8.1 H 0.0-8.0 % Basophils (%) (Auto) 1.1 0.0-5.0 % Neutrophils # (Auto) 3.7 1.8-7.7 K/uL Lymphocytes # (Auto) 1.6 1.0-4.8 K/uL Monocytes # (Auto) 0.7 0.1-1.0 K/uL Eosinophils # (Auto) 0.53 0.00-0.70 K/uL Basophils # (Auto) 0.07 0.00-0.20 K/uL Absolute Immature Granulocyte (auto 0.02 0-1 K/uL Nucleated Red Blood Cells 0.0 0.0-0.19 % Chemistry Labs: Test 03/25/25 11:27 03/25/25 09:37 03/25/25 04:17 03/24/25 22:16 Range/Units Whole Blood Glucose 195 H 70-110 MG/DL Troponin I High Sensitivity 57 4-75 ng/L Sodium Level 140 136-145 mmol/L Potassium Level 3.6 3.5-5.1 mmol/L Chloride Level 103 101-111 mmol/L Carbon Dioxide Level 30 21-32 mmol/L Blood Urea Nitrogen 18 7-18 mg/dL Creatinine 0.9 0.5-1.3 mg/dL Glomerular Filtration Rate Calc 87 >90 mL/min Random Glucose 115 H 70-105 mg/dL Total Calcium 8.2 L 8.5-10.1 mg/dL Phosphorus Level 4.9 2.5-4.9 mg/dL Magnesium Level 1.90 1.80-2.40 mg/dL Total Creatine Kinase 55 21-232 U/L Thyroid Stimulating Hormone (TSH) 0.09 L 0.36-3.74 uIU/mL Ammonia 17 11-32 umol/L Diagnostics / Radiology: Impression and Plan: Atrial Flutter with RVR Hypertension Hyperlipidemia Type II diabetes mellitus Paroxysmal atrial fibrillation on chronic anticoagulation with Eliquis Abnormal Lexiscan Cardiolite on 05/05/2024 with infero-lateral and apical ischemic defects Coronary calcium score of 1524.4 in 01/2024 LHC on 06/05/2025 with 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 Presented to the office with atypical atrial flutter with rapid rate and hypotension. Here in the hospital metoprolol and IV diltiazem were added to his regimen. He has converted to atri al fibrillation with controlled rate. We will continue with metoprolol and Multaq. We will discontinue his IV diltiazem. If rate remains controlled over the next several hours he can be discharged home and follow up next week with Dr. Hester his control operator for consideration of elective flutter ablation in the future. ATTESTATION BY PHYSICIAN I have seen and examined the patient. I reviewed the documentation, medical decision making, and treatment plan as noted by the mid-level provider above. I agree with the findings and plan of care. OBDULIA CASTANEDA MD, VALERIE L FNP Mar 25, 2025 13:28 OBDULIA CASTANEDA MD Mar 25, 2025 14:01
[2025-03-25] MEDS ORDERED: METO25 PO (13:59)
[2025-03-25 16:00] VITALS: BP 110/86; PULSE 62; RESP 16; TEMP 98.3
--- NOTE | 2025-03-25 20:41 | DS ---
[facility] DISCHARGE SUMMARY Date Patient Seen: Mar 25, 2025 Time of Visit: 20:38 Supervising Physician: Dr. Mosher Primary Care Physician: OANH ALVA Outpatient Specialists: [ ] Inpatient Consults: CARDIOLOGY HOSPITAL COURSE: HPI (per admitting provider) Patient is a 79-year-old male with past medical history significant for atrial fibrillation, diabetes type 2, hyperlipidemia, hypertension, surgical history of bilateral shoulders surgery, bilateral hips replacement, tonsillectomy, referred to the emergency department by his project analyst for evaluation of new onset of chest pain, near syncopal episode, and generalized body weakness. Patient reports that earlier today, he was seen by his primary care physician Dr. Dre Alfaro, and was found to be hypotensive and tachycardic. Patient was referred to Dr. FINE patient's project analyst. Upon 12 lead EKGs, patient was found to be in AFib with RVR and was referred to the emergency department for further evaluation and treatment. Patient also reports chest pain. Patient denies fever, chills, nausea, vomiting, diarrhea, cough, dizziness, or any other symptoms. Ultrasound Doppler of the bilateral chloride is shows no significant atherosclerotic plaque. In the emergency department, patient received metoprolol 5 mg IV,. For the time of the assessment, patient is still on AFib with RVR and was started on Cardizem drip with cardiology consult. Patient will be admitted to PCCU for close monitoring. The patient was treated for the following problems: Patient evaluated after being admitted following an EKG showing atrial fibrillation at the patient's PCP. He was unsuccessfully cardioverted with IV metoprolol in the ED and subsequently started on Cardizem drip. Cardiology was consulted and visited with the patient this morning and discontinued the drip, and started the patient on oral metoprolol. Patient has maintained sinus rhythm and regular rate and was cleared by Cardiology to discharge with his new prescription of metoprolol and follow up with Cardiology as outpatient. ACTIVE PROBLEM LIST FOR THE HOSPITALIZATION: 1. AFIB WITH RVR 2. UNSTABLE ANGINA CHRONIC PROBLEMS: continue previous management per PCP unless otherwise indicate d 3. 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 PCP notified of patients admission, hospital course and discharge. PHYSICAL EXAM: GENERAL: alert, weak, awake oriented x 3 HEENT: EOMI, Sclera non icteric, moist mucosa NECK: Supple, no JVD, trachea midline LUNGS: Clear breath sounds bilaterally. No wheezes HEART: Regular rate and rhythm. Normal S1 and S2, without murmurs ABD: Abdomen soft, nontender. Bowel sounds present EXT: No clubbing cyanosis or edema NEURO: Alert and oriented to person, follows commands FOLLOW-UP: Follow-up with PCP in 2-3 days RECOMMENDATIONS: See Discharge Instructions This case was seen and discussed with my supervising physician. More than 30 minutes spent on discharge process, including evaluation of the patient, discussion with nursing staff, medication reconciliation and follow-up appointments JENNA SIMON Mar 25, 2025 20:41
[2025-03-25] MEDS ORDERED: (Rosuvastatin Calcium 20 MG) PO SCH (21:00)
[2025-03-25] MEDS ORDERED: DRONEDARONE HYDROCHLORIDE 400 MG TABLET PO SCH (21:00)
[2025-03-26] MEDS ORDERED: (Ubidecarenone (Co Q-10) 1 CAP) PO SCH (09:00)
[2025-03-26] MEDS ORDERED: TESTOSTERONE TD SCH (09:00)
[2025-03-26] MEDS ORDERED: FARXIGA 10 MG PO SCH (09:00)
== END 2025-03-25 18:23 | disposition home or self-care (01) ==
LOC: EDH 14:39 → EDHIP 16:10 → 2AH 22:50
PROVIDERS: ADMIT Internal Medicine; ATTEND Internal Medicine
DX: I20.0 Unstable angina (principal); I48.91 Unspecified atrial fibrillation; I10 Essential (primary) hypertension; E78.00 Pure hypercholesterolemia, unspecified; E11.65 Type 2 diabetes mellitus with hyperglycemia; R55 Syncope and collapse; I95.9 Hypotension, unspecified; R53.1 Weakness; Z79.899 Other long term (current) drug therapy; Z98.890 Other specified postprocedural states
CPT/HCPCS: 96365; 96366 ×2; 96375; 99285; 82435; 82550 ×4; 82947; 83735 ×2; 84484 ×7; 84132; 84295; 80048 ×2; 82803; 80305; 82140; 85025 ×2; 85018; 83605; 81001; 36415 ×2; 71045; 70450; 93880; 93005 ×3; 36600; 96372; 84443; 84100; 82948 ×3; 93306; 93356; G0378 ×21; J3490 ×2; J1650; J1815